=== PATIENT | male | born 2000 | race African-American/Black ===

== ENCOUNTER 2022-01-16 08:57 | Outpatient (CLI) | payer OTHER, SELFPAY ==
--- NOTE | ~2022-01-16 | MR_ITS ---
EXAMINATION: MR knee LT wo con DATE: 01/16/2022 09:37 INDICATION: Acute left knee pain. TECHNIQUE: Magnetic resonance imaging (MRI) of the left knee was performed without intravenous contra st. Sequences included axial PD-weighted FS FSE, coronal PD-weighted FSE and PD-weighted FS FSE, sagi ttal PD-weighted FSE, and sagittal T2-weighted FS FSE. COMPARISON: None. FINDINGS: Medial compartment: Medial meniscus is normal. There is cartilage surface irregularity of tibial condyle and femoral cond yle. Osteophytes are noted. Lateral compartment: Body and posterior horn of lateral meniscus are small with blunting of the free edge, likely changes of partial meniscectomy. Tibial cartilage is normal. There is shallow partial-thickness cartilage los s of femoral condyle involving the central articular surface. Decreased signal in the cartilage exten ding to the bone may indicate deeper cartilage injury. There is mild subchondral edema-like marrow si gnal intensity. Osteophytes are noted. Patellofemoral compartment: Patellar cartilage is normal. Trochlear cartilage is normal. Osteophytes are noted. Ligaments and tendons: The anterior and posterior cruciate ligaments are normal. Medial collateral ligament is normal. There are changes of prior sprain of fibular collateral ligament characterized by thickening and increased signal intensity. There is mild patellar tendinopathy. Fluid: There is a small knee joint effusion. There is a small Patterson's cyst. There is mild semimembranosus-ti bial collateral ligament bursitis. IMPRESSION: 1. 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 2. Surgical changes of partial lateral meniscectomy. 3. Small knee joint effusion. 4. Small Patterson's cyst. 5. Mild semimembranosus-tibial collateral ligament bursitis. Reviewed, dictated and finalized at location A.
== END 2022-01-16 08:58 ==
LOC: MICIMG 09:01
PROVIDERS: PCP Orthopaedic Surgery; Visit Provider Orthopaedic Surgery
DX: M25.562 Pain in left knee (principal); M22.2X2 Patellofemoral disorders, left knee; Z98.890 Other specified postprocedural states; M25.462 Effusion, left knee; M71.22 Synovial cyst of popliteal space [Baker], left knee; M71.562 Other bursitis, not elsewhere classified, left knee
CPT/HCPCS: 73721